=== PATIENT | female | born 1990 | race Caucasian/White ===

== ENCOUNTER 2025-01-26 17:00 | Inpatient (IN) | payer OTHER ==
[2025-01-26] MEDS ORDERED: ELECTROLYTE-148 SOLN 500 ML IV ONE ×2 (17:30→19:36)
[2025-01-26 17:43] VITALS: BMI 28.7
[2025-01-26] MEDS ORDERED: ELECTROLYTE-148 SOLN 1,000 ML IV SCH (18:00)
[2025-01-26 18:20] LABS: ABSOLUTE IMMATURE GRANULOCYTES 0.06 x10^3/uL (0.0-0.031); BASOPHILS # 0.03 x10^3/uL (0.01-0.08); EOSINOPHIL % 0.3 % (0.7-5.8); EOSINOPHILS # 0.04 x10^3/uL (0.04-0.36); HEMATOCRIT 34.7 % (34.1-44.9); HEMOGLOBIN 11.5 g/dL (11.2-15.7); MCHC 33.1 g/dl (32.2-35.5); MEAN CELL VOLUME 90.6 fl (79.4-94.8); MEAN PLT VOLUME 12.4 fl (9.4-12.3); MONOCYTE # 0.75 x10^3/uL (0.24-0.86); MONOCYTE % 5.3 % (4.7-12.5); PLATELET COUNT 169 x10^3/uL (182-369); RDW 13.9 % (12.1-16.8)
[2025-01-26 18:31] LABS: ACTIVATED PTT 25.8 SECONDS (25.2-36.5)
[2025-01-26 18:50] LABS: POTASSIUM 3.9 mmol/L (3.5-5.1)
[2025-01-26 18:53] LABS: ALBUMIN 2.6 g/dl (3.4-5.0); BLOOD UREA NITROGEN 20.9 mg/dL (7-18)
[2025-01-26 18:56] LABS: CREATININE 0.7 mg/dL (0.55-1.3)
[2025-01-26 18:58] LABS: BILIRUBIN,TOTAL 0.3 mg/dL (0.2-1); TOT PROT 5.9 g/dl (6.4-8.2)
[2025-01-26] MEDS: CITRIC ACID/SODIUM CITRATE 30 ML UNIT-DOSE CUP PO ONE (19:25)
[2025-01-26] MEDS ORDERED: morphine SULFATE/PF 1 MG/2 ML (2cc Syringe - QUVA) ONE (19:28)
[2025-01-26] MEDS ORDERED: FENTANYL CITRATE/PF 50 MCG/ML VIAL ONE (19:29)
[2025-01-26] MEDS ORDERED: LIGASURE IMPACT TP ONE (19:29)
[2025-01-26] MEDS ORDERED: ONDANSETRON 4 MG/2 ML VIAL IVPB PRN (21:24)
[2025-01-26] MEDS: OXYTOCIN 20 UNITS in 0.9% NS 20 UNIT/1,000 ML INFUS.BAG IV SCH (21:45)
[2025-01-26] MEDS ORDERED: IBUPROFEN (CALDOLOR) 800 MG/200 ML PREMIX BAGS IVPB ONE (23:45)
[2025-01-26] MEDS: IBUPROFEN (CALDOLOR) 800 MG/200 ML PREMIX BAGS IVPB SCH (23:49)
[2025-01-27] MEDS: ACETAMINOPHEN 1000 MG/100 ML BAG IVPB SCH (00:33)
[2025-01-27] MEDS: CEFAZOLIN SODIUM 2 GM in DEXTROSE 5%-WATER - 50 ML IVPB SCH (01:07)
[2025-01-27] MEDS: SENNOSIDES/DOCUSATE COMBO (SENNA PLUS) TABLET (UD) PO SCH (01:24)
[2025-01-27 07:24] LABS: ABSOLUTE IMMATURE GRANULOCYTES 0.06 x10^3/uL (0.0-0.031); BASOPHILS # 0.04 x10^3/uL (0.01-0.08); EOSINOPHIL % 0.3 % (0.7-5.8); EOSINOPHILS # 0.04 x10^3/uL (0.04-0.36); HEMATOCRIT 33.8 % (34.1-44.9); MCHC 32.5 g/dl (32.2-35.5); MEAN CELL VOLUME 91.1 fl (79.4-94.8); MEAN PLT VOLUME 12.7 fl (9.4-12.3); MONOCYTE # 0.78 x10^3/uL (0.24-0.86); MONOCYTE % 5.7 % (4.7-12.5); PLATELET COUNT 133 x10^3/uL (182-369); RDW 13.9 % (12.1-16.8)
[2025-01-27] MEDS: PRENATAL VITAMINS W/ FOLIC ACID TABLET (FP) PO SCH (10:35)
[2025-01-27] MEDS: CEFAZOLIN 2 GM/D5W 2 GM/50 ML ML IVPB ONE (11:00)
[2025-01-27] MEDS: oxyCODONE HCL 5 MG TABLET PO PRN (20:30)
[2025-01-27] MEDS: SIMETHICONE 80 MG TAB.CHEW (FP) PO PRN (20:30)
[2025-01-27] MEDS ORDERED: BISACODYL 10 MG SUPP.RECT RC PRN (21:24)
[2025-01-27] MEDS: ACETAMINOPHEN 325 MG TABLET (FP) PO SCH (21:50)
[2025-01-28] MEDS: IBUPROFEN 600 MG TABLET (FP) PO SCH (02:19)
[2025-01-28 13:16] VITALS: RESP 18
[2025-01-28] MEDS: ACETAMINOPHEN 500 MG TABLET (FP) PO SCH (17:31)
[2025-01-28 21:10] VITALS: TEMP 98.4
[2025-01-29 10:14] VITALS: BP 124/78; PULSE 90
== END 2025-01-29 12:50 | disposition home or self-care (01) | DRG 785 ==
LOC: JDEL 17:00 → JLDR 17:20 → J3W 01-27 00:40
PROVIDERS: ADMIT Specialist; ATTEND Specialist
PROC: 10D00Z1 Extraction of Products of Conception, Low, Open Approach (ICD-10-PCS; principal; 2025-01-26)
PROC: 0UT70ZZ Resection of Bilateral Fallopian Tubes, Open Approach (ICD-10-PCS; 2025-01-26)
DX: O34.211 Maternal care for low transverse scar from previous cesarean delivery (principal); Z3A.39 39 weeks gestation of pregnancy; Z37.0 Single live birth; Z30.2 Encounter for sterilization
CPT/HCPCS: 36415; 59409; 80053; 85025; 85610; 85730; 86780; 86850; 86900; 86901; 88305-TC; 88307-TC

== ENCOUNTER 2025-02-09 18:07 | Emergency (ER) | payer OTHER ==
[2025-02-09 18:34] VITALS: BP 126/86; PULSE 83; RESP 18; TEMP 99.6; BMI 25.3
[2025-02-09] MEDS ORDERED: ACETAMINOPHEN 325 MG TABLET (FP) ONE (19:25)
[2025-02-09] MEDS: ACETAMINOPHEN 325 MG TABLET (FP) PO ONE (19:46)
[2025-02-09 22:40] LABS: ABSOLUTE IMMATURE GRANULOCYTES 0.02 x10^3/uL (0.0-0.031); BASOPHILS # 0.05 x10^3/uL (0.01-0.08); EOSINOPHIL % 2.4 % (0.7-5.8); EOSINOPHILS # 0.18 x10^3/uL (0.04-0.36); MCHC 32.1 g/dl (32.2-35.5); MEAN CELL VOLUME 92.1 fl (79.4-94.8); MEAN PLT VOLUME 10.2 fl (9.4-12.3); MONOCYTE # 0.53 x10^3/uL (0.24-0.86); MONOCYTE % 7.0 % (4.7-12.5); RDW 14.1 % (12.1-16.8)
[2025-02-09 22:50] LABS: INR 1.15 (0.83-1.09); PROTHROMBIN TIME (PATIENT) 12.7 SEC (9.7-13.0)
[2025-02-10 00:44] LABS: CO2 25.0 mmol/L (21-32); GLUCOSE,RANDOM 96.0 mg/dL (74-106)
[2025-02-10 00:47] LABS: CREATININE 0.6 mg/dL (0.55-1.3); SGOT/AST 15.0 U/L (15-37); SGPT/ALT 24.0 U/L (13-61)
[2025-02-10 00:48] LABS: TOT PROT 6.9 g/dl (6.4-8.2)
[2025-02-10 00:49] LABS: ALK PHOS 87.0 U/L (45-117)
[2025-02-10 00:51] LABS: EPI CELLS 10 /uL (0-25.1); HYALINE CASTS 0 /uL (0-3.1); URINE APPEARANCE CLEAR; URINE BACTERIA 1528 /uL (0-1359); URINE BILIRUBIN NEGATIVE (NEGATIVE); URINE COLOR YELLOW; URINE GLUCOSE (UA) NEGATIVE (NEGATIVE); URINE KETONE NEGATIVE (NEGATIVE); URINE LEUK ESTERASE 3+ (NEGATIVE); URINE NITRITE NEGATIVE (NEGATIVE); URINE PROTEIN NEGATIVE (NEGATIVE); URINE RBC 17 /uL (0-23.9); URINE UROBILINOGEN 0.2 mg/dL (0.2-1.0); URINE WBC 245 /uL (0-25.8)
[2025-02-10] MEDS ORDERED: LIDOCAINE 4% PATCH TP ONE (01:18)
[2025-02-10] MEDS ORDERED: CEPHALEXIN MONOHYDRATE 500 MG CAPSULE (UD) ONE (01:18)
[2025-02-10] MEDS ORDERED: KETOROLAC TROMETHAMINE 15 MG/ML VIAL ONE (01:19)
[2025-02-10] MEDS: KETOROLAC TROMETHAMINE 30 MG/1 ML VIAL IVPUSH ONE (01:26)
[2025-02-10] MEDS: LIDOCAINE 4% PATCH TP ONE (01:26)
[2025-02-10] MEDS: CEPHALEXIN MONOHYDRATE 500 MG CAPSULE (UD) PO ONE (01:26)
[2025-02-10] MEDS ORDERED: LIDOCAINE PATCH REMOVAL MC ONE (13:00)
== END 2025-02-10 01:31 | disposition home or self-care (01) ==
LOC: JER 18:07
PROC: 3E0333Z Introduction of Anti-inflammatory into Peripheral Vein, Percutaneous Approach (ICD-10-PCS; principal; 2025-02-10)
DX: O90.89 Other complications of the puerperium, not elsewhere classified (principal); R10.31 Right lower quadrant pain; O99.893 Other specified diseases and conditions complicating puerperium; M79.89 Other specified soft tissue disorders; M79.662 Pain in left lower leg; O86.20 Urinary tract infection following delivery, unspecified
CPT/HCPCS: 36415; 74176-TC; 76856-TC; 80053; 81003; 83690; 85025; 85610; 86850; 86900; 86901; 87077; 87086; 93005; 93010; 93971-TC; 99285-25